=== PATIENT | female | born 1985 | race Caucasian/White ===

== ENCOUNTER 2017-01-20 18:31 | Emergency (ER) | payer OTHER ==
[~2017-01-20 18:31] MED LIST: ALBUTEROL HFA60 DOSE IN; BACTRIM1 TAB PO; DOCUSATE SODIU100 MG PO; FE GLUCONATE325 MG PO; PRENATA1 PO; VICODIN EQUIVAL1 TAB PO
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
--- NOTE | 2017-01-20 21:11 | ED MAR SUMMARY ---
..... Medication Administration Record [facility] [address] [place], [place] [id number] Patient: ELOY LEONARD Visit ID: [id number] 31y, F Weight: 79.3 kg Height/Length: 66 in BMI: 28.2 ALLERGIES: Naprosyn, Oxycodone, Benadryl
--- NOTE | 2017-01-20 21:11 | ED MED RECONCILIATION SUMMARY ---
Patient: JUAN C SOLOMON, Medication Reconciliation Report [facility] VisitID: [id number] [address] [place] [address] 31y, F Registration Date/Time: 01/20/2017 Weight: 79.3 kg Height/Length: 66 in. BMI: 28.2 ALLERGIES: Benadryl, Naprosyn, Oxycodone The patient's Home Medications are listed below: NONE. The source(s) of the original Home Medication information: patient The following Medications were given to the patient in the Emergency Department: None. The following Medications were prescribed to the patient: None.
--- NOTE | 2017-01-20 21:11 | ED MAR SUMMARY ---
..... Medication Administration Record [facility] [address] [place], [place] [id number] Patient: ELOY LEONARD Visit ID: [id number] 31y, F Weight: 79.3 kg Height/Length: 66 in BMI: 28.2 ALLERGIES: Naprosyn, Oxycodone, Benadryl
--- NOTE | 2017-01-20 21:11 | ED DISCHARGE INSTRUCTIONS ---
Patient: JUAN C SOLOMON, General Instructions [facility] VisitID: [id number] [place] [address] 31y, F Registration Date/Time: 01/20/2017 Single contusion to the left forearm.No hematoma or skin abrasion. INSTRUCTIONS Warnings: GENERAL WARNINGS: Return or contact your physician immediately if your condition worsens or changes unexpectedly, if not improving as expected, or if other problems arise. Specifically return if problem worsens. Follow-up: Follow up with your doctor in about one week as needed. Call for an appointment. Summary of care provided to patient. Understanding of the discharge instructions verbalized by patient. ADDITIONAL INFORMATION Contusion,Soft Tissue You have a CONTUSION, which is a bruise with swelling and some bleeding under the skin. There are no broken bones. This injury takes a few days to a few weeks to heal. Home Care: 1) Keep the injured part elevated to reduce pain and swelling. This is especially important during the first 48 hours. 2) Make an ice pack (ice cubes in a plastic bag, wrapped in a towel) and apply for 20 minutes every 1-2 hours the first day. Continue this 3-4 times a day until the pain and swelling goes away. 3) You may use acetaminophen (Tylenol) or ibuprofen (Motrin, Advil) to control pain, unless another pain medicine was prescribed. [ NOTE : If you have chronic liver or kidney disease or ever had a stomach ulcer or GI bleeding, talk with your doctor before using these medicines.] Follow Up with your doctor or this facility if you are not improving within the next THREE days. [NOTE: If X-rays were taken, they will be reviewed by a radiologist. You will be notified of any new findings that may affect your care.] Get Prompt Medical Attention if any of the following occur: -- Pain or swelling increases -- Injured arm or leg becomes cold, blue, numb or tingly -- Redness, warmth or drainage from the skin You have been given the following additional information: Contusion, Soft Tissue (Electronically signed by Shanita Haq A.R.N.P. 01/20/2017 20:41)
--- NOTE | 2017-01-20 21:11 | ED MED RECONCILIATION SUMMARY ---
Patient: JUAN C SOLOMON, Medication Reconciliation Report [facility] VisitID: [id number] [address] [place] [place] [address] 31y, F Registration Date/Time: 01/20/2017 Weight: 79.3 kg Height/Length: 66 in. BMI: 28.2 ALLERGIES: Benadryl, Naprosyn, Oxycodone The patient's Home Medications are listed below: NONE. The source(s) of the original Home Medication information: patient The following Medications were given to the patient in the Emergency Department: None. The following Medications were prescribed to the patient: None.
--- NOTE | 2017-01-20 21:11 | ED DISCHARGE INSTRUCTIONS ---
Patient: JUAN C SOLOMON, General Instructions [facility] VisitID: [id number] [place] [address] 31y, F Registration Date/Time: 01/20/2017 Single contusion to the left forearm.No hematoma or skin abrasion. INSTRUCTIONS Warnings: GENERAL WARNINGS: Return or contact your physician immediately if your condition worsens or changes unexpectedly, if not improving as expected, or if other problems arise. Specifically return if problem worsens. Follow-up: Follow up with your doctor in about one week as needed. Call for an appointment. Summary of care provided to patient. Understanding of the discharge instructions verbalized by patient. ADDITIONAL INFORMATION Contusion,Soft Tissue You have a CONTUSION, which is a bruise with swelling and some bleeding under the skin. There are no broken bones. This injury takes a few days to a few weeks to heal. Home Care: 1) Keep the injured part elevated to reduce pain and swelling. This is especially important during the first 48 hours. 2) Make an ice pack (ice cubes in a plastic bag, wrapped in a towel) and apply for 20 minutes every 1-2 hours the first day. Continue this 3-4 times a day until the pain and swelling goes away. 3) You may use acetaminophen (Tylenol) or ibuprofen (Motrin, Advil) to control pain, unless another pain medicine was prescribed. [ NOTE : If you have chronic liver or kidney disease or ever had a stomach ulcer or GI bleeding, talk with your doctor before using these medicines.] Follow Up with your doctor or this facility if you are not improving within the next THREE days. [NOTE: If X-rays were taken, they will be reviewed by a radiologist. You will be notified of any new findings that may affect your care.] Get Prompt Medical Attention if any of the following occur: -- Pain or swelling increases -- Injured arm or leg becomes cold, blue, numb or tingly -- Redness, warmth or drainage from the skin You have been given the following additional information: Contusion, Soft Tissue (Electronically signed by Shanita Haq A.R.N.P. 01/20/2017 20:41)
== END 2017-01-20 20:40 | disposition home or self-care (01) ==
LOC: ED SRH 18:31
DX: S50.12XA Contusion of left forearm, initial encounter (principal); X58.XXXA Exposure to other specified factors, initial encounter; Y93.9 Activity, unspecified; Y99.9 Unspecified external cause status; Y92.009 Unspecified place in unspecified non-institutional (private) residence as the place of occurrence of the external cause